=== PATIENT | male | born 1960 | race Caucasian/White ===

== ENCOUNTER 2018-02-11 01:46 | Emergency (ER) | payer OTHER, SELFPAY ==
[2018-02-11 01:47] VITALS: BP 147/85; PULSE 57; RESP 18; TEMP 36.5; O2SAT 97
[2018-02-11 01:51] VITALS: BP 147/85; PULSE 55; RESP 18; TEMP 36.5; O2SAT 95; BMI 30.1
--- NOTE | 2018-02-11 02:50 | RAD_ITS ---
STUDY: X-RAY - RIGHT TIBIA AND FIBULA REASON FOR EXAM: Male, 57 years old. Right lower leg pain status post blunt injury. TECHNIQUE: 2 view(s) of the tibia and fibula were obtained. COMPARISON: None. FINDINGS: Normal visualized tibia. Normal visualized fibula. Joints are in normal alignment without significant degenerative change. The soft tissue structures are unremarkable. RAD/Tibia & Fibula 2 Views IMPRESSION: Normal x-ray examination of the tibia and fibula. Electronically Signed: Twan Gandara MD at 3:04 EDT Tel , Service support ,
[2018-02-11] MEDS: Ibuprofen 600 MG Tablet PO (03:06)
--- NOTE | 2018-02-11 03:06 | ED.VISSUMM ---
- ER Visit Summary Date of Service: 02/11/18 Chief Complaint: [] Injury to right tibia History of Present Illness: The patient is a 57 M accidentally injured his right tibia he ran into some tubing at 715 tonight at work. He is having some aching pain in his right sharp Physical Examination: [] Vital signs reviewed General: Well-nourished well-developed Head: Normocephalic atraumatic Eyes: Pupils equal round and reactive to light extraocular movements intact ENT: TMs clear no hemotympanum no trauma Neck: Nontender full range of motion Cardiovascular: Regular rate rhythm no murmurs normal S1-S2 Respiratory: No distress clear to auscultation bilaterally chest nontender Abdomen: Soft nontender nondistended normal bowel sounds no masses Back: Nontender no CVA tenderness Extremities: Tenderness right anterior sharp pinpoint. No swelling deformity or contusion Skin: Normal color no trauma Neuro alert oriented cranial nerves II through XII intact normal strength sensation reflexes Test Results: [] Emergency Department Course and Treatment: [] X-ray negative. Given Gagan wrap ibuprofen and ice. We will continue these. At this time I think he just bruised his sharp Treatment Plan: [] Disposition: [] Impression: [] Right sharp contusion This note was generated with [employer] dictation software. It may contain incorrect words, spelling, and punctuation that were not noted in review of the chart prior to signing ED Disposition - Plan for ED Patient: Chief Complaint: Lower Extremity Injury Referrals: Fred Rea MD [Primary Care Provider] -
--- NOTE | 2018-02-11 03:08 | DCINST.ED_ITS ---
ED Disposition - Plan for ED Patient: Disposition: Home or Assisted Living Chief Complaint: Lower Extremity Injury Instructions: ED Contusion Lower Ext Referrals: Fred Rea MD [Primary Care Provider] - [facility] [facility] [GROUP OF PHYSICIANS] -
[2018-02-11 03:21] VITALS: RESP 18
== END 2018-02-11 03:22 | disposition home or self-care (01) ==
PROVIDERS: Emergency Provider Emergency Medicine; Family Provider Family Medicine; PCP Family Medicine
DX: S80.11XA Contusion of right lower leg, initial encounter (principal); W22.09XA Striking against other stationary object, initial encounter; Y93.02 Activity, running; Y92.9 Unspecified place or not applicable; Y99.0 Civilian activity done for income or pay
CPT/HCPCS: 73590; 99282

== ENCOUNTER 2020-02-08 19:12 | Observation (INO) | payer BC, SELFPAY ==
[2019-12-21 14:38] VITALS: BMI 30.2
[2020-02-08] VITALS (8 sets, daily range): BP systolic 124–163; BP diastolic 76–96; PULSE 57–83; RESP 15–21; TEMP 36.3–36.8; O2SAT 96–97; BMI 30.7; BMI 29.7; BMI 29.8
--- NOTE | 2020-02-08 19:24 | EKG12_ITS ---
Test Reason : AM EKG Blood Pressure : / mmHG Vent. Rate : 059 BPM Atrial Rate : 059 BPM P-R Int : 156 ms QRS Dur : 078 ms QT Int : 406 ms P-R-T Axes : 072 -24 035 degrees QTc Int : 401 ms Sinus bradycardia Inferior infarct , age undetermined Abnormal ECG When compared with ECG of 08-FEB-2020 21:50, MANUAL COMPARISON REQUIRED, DATA IS UNCONFIRMED Confirmed by JOSÉ ORTA, ANA ([id number]), video tape editor SANDIP RIVERA ([id number]) on 02/12/2020 2:11:19 PM Referred By: MICHELLE Confirmed By:LESLIE KUMAR MD
--- NOTE | 2020-02-08 19:29 | ED.RN ---
no old ekgs in [facility]
--- NOTE | 2020-02-08 19:40 | ED.VISSUMM ---
- ER Visit Summary Date of Service: 02/08/20 Chief Complaint: Chest pain History of Present Illness: The patient is a 59 M presenting with chest pain. He states this started after taking a walk. He had substernal and bilateral chest pain which was 9 out of 10 at its worst. He states the pain radiated to his right arm. He had associated shortness of breath, diaphoresis. He denies nausea, vomiting, lightheadedness. Currently pain he is chest pain-free. He has a history of hypertension and previous smoking. Physical Examination: Vitals are stable. Patient is afebrile. Alert no acute distress. HEENT exam is unremarkable. Neck is supple. Lungs are clear and equal bilaterally. Heart is regular rate and rhythm. Abdomen is soft nontender nondistended. Extremities are unremarkable. Skin is warm and dry. No focal neurologic deficit. Remainder of exam is unremarkable. Emergency Department Course and Treatment: Patient was given aspirin on arrival. EKG is sinus rhythm rate of 83, prolonged QTC. Chest xray shows no acute cardiopulmonary process identified. CBC, chemistries unremarkable other than BUN 23, glucose 214. Troponin is negative. On reevaluation, patient is chest pain-free. Discussed with hospitalist for observation. Disposition: Observation Impression: Chest pain This note was generated with [employer] dictation software. It may contain incorrect words, spelling, and punctuation that were not noted in review of the chart prior to signing ED Disposition - Plan for ED Patient: Referrals: Fred Rea MD [Primary Care Provider] -
[2020-02-08 19:41] LABS: Absolute Lymphocyte Count 1.63 X10^3/uL (0.83-4.51); Basophil# 0.03 X10^3/uL; Basophil% 0.6 % (0-1); Eosinophil# 0.09 X10^3/uL; Eosinophils% 1.7 % (0-5); Hematocrit 43.7 % (40-54); Hemoglobin 14.7 g/dL (13.0-16.5); Lymphocyte # 1.63 X10^3/ul (4.0); Lymphocyte % 30.8 % (19-41); Mean Corp Hgb Conc 33.6 g/dL (32-36); Mean Corpuscular Hgb 29.8 pg (27.0-32.0); Mean Corpuscular Volume 88.5 fL (80-94); Mean Platelet Vol. 10.7 fl (6.2-12.0); Monocyte# 0.48 X10^3/uL; Monocyte% 9.1 % (0-10); NRBC Flagged by Analyzer 0 % (0-5); Neutrophil # 3.03 X10^3/uL (2.7-7.7); Platelet Count 227 K/mm3 (150-450); RBC Distribution Width CV 12.5 % (11.6-14.6); RBC Distribution Width SD 40.4 fl (35.1-43.9); Red Blood Count 4.94 M/mm3 (4.6-6.2); White Blood Count 5.3 K/mm3 (4.4-11.0)
[2020-02-08 19:58] LABS: Anion Gap 4 (5-15); BUN 23 mg/dL (7-18); BUN/Creat Ratio 19.8 RATIO (10-20); Calcium,Total 8.6 mg/dL (8.5-10.1); Chloride 109 mmol/L (98-107); Creatinine, Serum 1.16 mg/dL (0.70-1.30); EST Glomerular Filtration Rate 68 mL/min (>60); Est Glom Filt Rate - Afr Amer 82 mL/min (>60); Estimated Creatinine Clearance 69.05 ml/min; Glucose 214 mg/dL (74-106); Potassium 3.7 mmol/L (3.5-5.1); Sodium Level 141 mmol/L (136-145)
--- NOTE | 2020-02-08 20:02 | RAD_ITS ---
STUDY: X-RAY CHEST REASON FOR EXAM: Male, 59 years old. PT C/O CHEST PAIN, SOB, AND DIAPHORESIS AFTER TAKING A WALK [employer]. TECHNIQUE: Single frontal view of the chest. COMPARISON: None. FINDINGS: Cardiac silhouette unremarkable. Pulmonary vascularity unremarkable. Aorta unremarkable. No focal airspace opacities. No pleural effusions. Upper abdomen unremarkable. Osseous structures intact. No pneumothorax. RAD/Chest 1 View (Portable) IMPRESSION: No acute cardiopulmonary process identified. Electronically Signed: Camilo Tovar, at 20:16 EDT Tel , Service support ,
[2020-02-08] MEDS: Aspirin 81 MG TAB.CHEW 324 MG PO (20:06)
--- NOTE | 2020-02-08 20:55 | HP.PCM_ITS ---
History of Present Illness Date of Admission: 02/08/20 Chief Complaint: chest pain The patient is a 59 year old M with a past history of high blood pressure. He was admitted through the ED on 02/08/2020 with a complaint of chest pain. Chest pain had been going on for a few weeks and he states is the third time he had had a chest pain in a couple of weeks. Pain was sharp, retrosternal, with no aggravating or relieving factors and associated with increased sweating. He denies any lightheadedness or dizziness but does have some palpitations with it. He is never had any heart problems and denies ever having a stress test. He denied any fever, chills, shortness of breath, abdominal pain, diarrhea vomit ing. Review of systems otherwise negative. On admission in the ED, temperature was 97.5 Fahrenheit with blood pressure of 158/85, pulse rate of 66 and respiratory rate of 21. He was saturating at 96% on room air. Chemistry was essentially unremarkable the glucose was 214. Initial troponin was < 0.015. CBC was unremarkable. Chest x-ray showed no acute cardiopulmonary process. He has been admitted to be managed for chest pain rule out ACS. [] Past Medical History Medical History: Medical History (Last Reviewed 12/26/19 @ 15:30 by Amena Resendiz) Alcohol abuse F10.10 Anxiety F41.9 Arthritis M19.90 Bilateral headaches R51 Carpal tunnel syndrome G56.00 GERD (gastroesophageal reflux disease) K21.9 GI disease K92.9 LEFT WRIST REPAIR RIGHT WRIST REPAIR Hypertension I10 Allergies No Known Allergies Allergy (Verified 02/22/18 11:58) Home Medications: Ambulatory Orders Medication Instructions Recorded Amlodipine Besylate [Norvasc] 2.5 mg PO DAILY 03/08/17 Tamsulosin HCl [Flomax] 0.4 mg PO DAILY 03/08/17 Cetirizine HCl 10 mg PO DAILY 02/08/20 Diphenhydramine HCl [Sleep Aid] 25 mg PO QHS 02/08/20 Surgical History: Surgical History (Last Reviewed 12/26/19 @ 15:30 by Amena Resendiz) H/O hernia repair Z98.890, Z87.19 Status post fusion of wrist Z98.1 Surgical History: no surgical history Psychiatric History: No pertinent psych hx Lives: Spouse/ Significant Other Smoking Status: Former smoker Alcohol: None Drugs: None - *Family History Maternal Family History: Family History (Last Reviewed 12/26/19 @ 15:30 by Amena Resendiz) Other Cancer Colon cancer Hypertension Review of Systems Constitutional: Denies: Chills, Fever, Malaise, Weakness, Weight Change Eyes: Denies: Blurred vision HEENT: Denies: Head Aches, Sinus Congestion, Sinus Drainage Cardiovascular: Reports: Chest Pain, Palpitations. Denies: Chest Pressure, Chest Tightness, Edema, Heaviness, Light Headedness, Orthopnea, Paroxysmal Noc. Dyspnea, Syncope Respiratory: Denies: Cough, Shortness of Breath, Shortness of breath at rest, Shortness of breath upon exertion, Sputum production Gastrointestinal: Denies: Abdominal Pain, Nausea, Vomiting Genitourinary: Denies: Dysuria Musculoskeletal: Denies: Joint Pain, Joint Tenderness Skin: Denies: Rash, Wounds Neurological: Denies: Numbness, Tingling, Focal weakness Psychiatric: Denies: Anxiety, Depression, Homicidal Ideations, Suicidal Ideations Hematologic/ Lymphatic: Denies: Easy Bruising, Easy Bleeding VTE Information - Inpt Only VTE Present on Admission: No VTE Pharm Prophylaxis ordered?: Yes - Physical Exam Vitals/I&O's: Vital Signs Temp Pulse Resp BP Pulse Ox 97.5 F L 66 21 H 158/85 H 96 02/08/20 19:15 02/08/20 20:13 02/08/20 20:13 02/08/20 20:13 02/08/20 20:13 Oxygen Delivery Method Room Air Weight: 214 lb 8.156 oz Body Mass Index (BMI) 30.7 General: Alert, Oriented x3, Cooperative, No apparent distress HEENT: Atraumatic, PERRLA, EOMI, Normocephalic Oral: Moist Mucosa Neck: Supple, No JVD, Negative Carotid Bruits Lungs: Clear to auscultation, Normal air movement, No rhonchi, No wheeze, No rales Cardiovascular: Regular rate, Regular Rhythm, Normal S1, Normal S2, No murmurs Abdomen: Bowel Sounds Present, Soft, Non Tender, Non-Distended, No Hepato- splenomegaly Extremities: No clubbing, No cyanosis, No edema, Capillary Refill Less than 3 Seconds Skin: No rashes, No breakdown Musculoskeletal: No Tenderness to Palpation of Joints or Extremities Lymphatic: No Cervical, Supraclavicular, or Inguinal Adenopathy Neurological: Cranial nerves II-XII grossly intact, Neuro grossly intact, Motor Exam 5/5 strength throughout Psych/Mental Status: Normal Affect, Appropriate, Alert and oriented to time, place, person, mood and affect Laboratory Results 02/08/20 19:20: WBC 5.3, RBC 4.94, Hgb 14.7, Hct 43.7, MCV 88.5, MCH 29.8, MCHC 33.6, RDW Std Deviation 40.4, RDW Coeff of Lara 12.5, Plt Count 227, MPV 10.7, Immature Gran % (Auto) 0.800, Neut % (Auto) 57.0, Lymph % (Auto) 30.8, [place] % (Auto) 9.1, Eos % (Auto) 1.7, Baso % (Auto) 0.6, Absolute Neuts (auto) 3.0, Absolute Lymphs (auto) 1.63, Nucleated RBC % 0 02/08/20 19:20: Sodium 141, Potassium 3.7, Chloride 109 H, Carbon Dioxide 28.0, Anion Gap 4 L, BUN 23 H, Creatinine 1.16, Estim Creat Clear Calc 69.05, Est GFR (MDRD) Af Amer 82, Est GFR (MDRD) Non-Af 68, BUN/Creatinine Ratio 19.8, Glucose 214 H, Calcium 8.6, Troponin I < 0.015 Diagnostic Data Chest X-Ray 02/08/20 20:02 IMPRESSION: No acute cardiopulmonary process identified. Electronically Signed: Camilo Tovar, at 20:16 EDT Tel , Service support , Assessment/Plan All Active Problems (Last Reviewed 12/26/19 @ 15:30 by Amena Resendiz) Back pain (Acute) Segmental and somatic dysfunction of thoracic region (Acute) Segmental and somatic dysfunction of lumbar region (Acute) Segmental and somatic dysfunction of cervical region (Acute) Contusion of right lower leg, initial encounter (Acute) 59-year-old female admitted with complaint of chest pain. 1. Chest pain rule out ACS. * admit to PCU with telemetry. Initial troponin is negative. * Chest x-ray showed no acute cardiopulmonary process. * Cycle troponins x2. * Sublingual nitroglycerin PRN. P.o. aspirin 81 mg daily. * For stress test tomorrow if troponins are negative. * 2. Hypertension: On amlodipine. 3. BPH: On Flomax. DVT prophylaxis: Lovenox CODE STATUS: Full code * Patient counseled extensively about different types of CODE STATUS including full code, DNR CCA and DNR CCA. Patient elects to be full code. Total ksus-yr-xzle time () minutes. OBSV E&M: 63020 Initial observation care L2 Procedures: 89090 Advncd Care Plan 30 Min
--- NOTE | 2020-02-08 21:43 | EKG12_ITS ---
Test Reason : CP ADMISSION Blood Pressure : / mmHG Vent. Rate : 063 BPM Atrial Rate : 063 BPM P-R Int : 154 ms QRS Dur : 072 ms QT Int : 408 ms P-R-T Axes : 051 -09 -01 degrees QTc Int : 417 ms Sinus rhythm with Premature atrial complexes Inferior infarct , age undetermined Abnormal ECG When compared with ECG of 08-FEB-2020 19:21, MANUAL COMPARISON REQUIRED, DATA IS UNCONFIRMED Confirmed by JOSÉ ORTA, ANA ([id number]), telegraph editor SANDIP RIVERA ([id number]) on 02/12/2020 2:15:29 PM Referred By: MICHELLE Confirmed By:LESLIE KUMAR MD
[2020-02-08 22:30] LABS: Hemoglobin A1c 5.6 % (3.8-5.6)
[2020-02-08] MEDS: DiphenhydrAMINE 25 MG Capsule PO (23:09)
[2020-02-09 03:00] VITALS: PULSE 64
[2020-02-09 03:47] VITALS: BP 125/68; PULSE 60; RESP 16; TEMP 36.7; O2SAT 97
[2020-02-09 05:46] VITALS: BP 132/81; PULSE 61; RESP 16; TEMP 36.3; O2SAT 93
[2020-02-09] MEDS: Aspirin E.C. 81 MG Tablet PO (05:49)
--- NOTE | 2020-02-09 05:55 | EKG12_ITS ---
Test Reason : CP Blood Pressure : / mmHG Vent. Rate : 083 BPM Atrial Rate : 083 BPM P-R Int : 152 ms QRS Dur : 078 ms QT Int : 534 ms P-R-T Axes : 054 -10 064 degrees QTc Int : 627 ms Normal sinus rhythm Prolonged QT Abnormal ECG Confirmed by LACI ORTA, ARAM ([id number]), video editor NOLAN LENNON ([id number]) on 02/13/2020 8:56:48 AM Referred By: PRASHANTH Confirmed By:ARAM AGUERO MD
[2020-02-09 06:35] LABS: Absolute Lymphocyte Count 1.25 X10^3/uL (0.83-4.51); Absolute Neutrophil Count 2.4 X10^3/uL (2.0-7.7); Basophil# 0.03 X10^3/uL; Basophil% 0.7 % (0-1); Eosinophil# 0.07 X10^3/uL; Eosinophils% 1.6 % (0-5); Hematocrit 43.7 % (40-54); Hemoglobin 14.9 g/dL (13.0-16.5); Lymphocyte # 1.25 X10^3/ul (4.0); Lymphocyte % 29.2 % (19-41); Mean Corp Hgb Conc 34.1 g/dL (32-36); Mean Corpuscular Hgb 30.3 pg (27.0-32.0); Mean Corpuscular Volume 88.8 fL (80-94); Mean Platelet Vol. 10.5 fl (6.2-12.0); Monocyte# 0.46 X10^3/uL; Monocyte% 10.7 % (0-10); NRBC Flagged by Analyzer 0 % (0-5); Neutrophil # 2.43 X10^3/uL (2.7-7.7); Neutrophil % 56.9 % (47-70); Platelet Count 211 K/mm3 (150-450); RBC Distribution Width CV 12.5 % (11.6-14.6); RBC Distribution Width SD 40.3 fl (35.1-43.9); Red Blood Count 4.92 M/mm3 (4.6-6.2); White Blood Count 4.3 K/mm3 (4.4-11.0)
[2020-02-09 06:59] VITALS: PULSE 62
[2020-02-09 07:06] LABS: Anion Gap 1 (5-15); BUN 20 mg/dL (7-18); BUN/Creat Ratio 20.2 RATIO (10-20); Calcium,Total 8.5 mg/dL (8.5-10.1); Chloride 111 mmol/L (98-107); Creatinine, Serum 0.99 mg/dL (0.70-1.30); EST Glomerular Filtration Rate 81 mL/min (>60); Est Glom Filt Rate - Afr Amer 98 mL/min (>60); Estimated Creatinine Clearance 80.91 ml/min; Glucose 119 mg/dL (74-106); Potassium 4.2 mmol/L (3.5-5.1); Sodium Level 142 mmol/L (136-145)
[2020-02-09 10:01] VITALS: BP 121/80; PULSE 66; RESP 16; TEMP 36.7; O2SAT 99
[2020-02-09] MEDS: amLODIPine 2.5 MG Tablet PO (10:19)
[2020-02-09] MEDS: Enoxaparin 40 MG/0.4 ML Syringe SC (10:19)
[2020-02-09] MEDS: Loratadine 10 MG Tablet PO (10:19)
[2020-02-09 12:09] VITALS: PULSE 55
--- NOTE | 2020-02-09 12:27 | STRESSREP_ITS ---
Stress Test Report Date: 02/09/2020 Procedure: Exercise tolerance test/imaging study Indications: Chest discomfort Consent: Per the patient Procedure: The patient exercised on a Yang protocol for 8 minutes and 30 seconds achieving a peak heart rate of 141 bpm (88 % predicted maximal heart rate) with a peak blood pressure 162/82 mmHg and a peak MET capacity of 10.1 METs. The baseline ECG demonstrated normal sinus rhythm. The peak exercise ECG demonstrated sinus tachycardia with no significant ischemic changes patient did have one 3 beat run of nonsustained V. tach during exercise. He had occasional PVCs as well during exercise and in the recovery period. EKG during recovery revealed [no significant ischemic changes] [There were no significant cardiac dysrhythmias pretest, during exercise, or recovery]. The functional capacity was considered normal for age. There was [no complaint of chest discomfort during exercise or recovery]. The examination was discontinued secondary to shortness of breath. Impression: 1. Technically adequate (percent predicted maximal heart rate greater than 85%) exercise tolerance test 2. Stress test is negative for exercise-induced EKG changes of ischemia 3. The test test is negative for exercise-induced chest pain 4. Functional capacity is normal for age 5. Nuclear images pending Myocardial perfusion imaging study: Technique: The patient was injected with 14.4 mCi of technetium 99m Cardiolite and subsequently rest SPECT Cardiolite nuclear imaging was obtained in the horiz ontal long, vertical long, and short axis views. The patient exercised on a Yang protocol. Please see above for details. The patient was injected with 45 mCi of technetium 99m Cardiolite and subsequently stress SPECT Cardiolite nuclear imaging was obtained in the horizontal long, vertical long, and short axis views. A gated Cardiolite study at peak stress was obtained. Interpretation: Rest and stress SPECT Cardiolite nuclear imaging status post realignment, normalization, and attenuation correction, demonstrates overall normal myocardial radioisotope uptake. The gated Cardiolite study demonstrates no significant regional wall motion abnormalities. The reported LVEF is 67 %. Impression: 1. There is no evidence of significant ischemia or infarction. 2. The gated Cardiolite study reports an LVEF of 67 %. This note was generated with [employer] software. It may contain incorrect words, spelling, and punctuation that were not noted in checking the note before signing.
--- NOTE | 2020-02-09 12:52 | DCINST_ITS ---
You will use the following diet at home:: Cardiac Your food should be the consistency of: Regular Your liquids should be the consistency of: Regular/Thin Discharge Activity: Return to Normal Activity Call your doctor if you observe: Fever of 101 or Higher, Shortness of breath, Dizziness, Fainting spells, Swelling in the ankles, Chest pain, Increased palpitations (irregular heartbeat) Allergies/Adverse Reactions: Allergies No Known Allergies Allergy (Verified 02/22/18 11:58) Medications to take at Discharge Amlodipine Besylate [Norvasc] 2.5 mg PO DAILY 03/08/17 Tamsulosin HCl [Flomax] 0.4 mg PO DAILY 03/08/17 Cetirizine HCl 10 mg PO DAILY 02/08/20 Diphenhydramine HCl [Sleep Aid] 50 mg PO QHS 02/08/20 Primary Care Physician: Fred Rea MD [Primary Care Provider] - Please follow up with your Primary Care Physician in: 3-5 days Test Results: Test results from this visit will be discussed in further detail at your follow- up appointment, if applicable.
--- NOTE | 2020-02-09 13:36 | PHA.DC.MR ---
Pharmacy Service has performed discharge medication reconciliation for this patient. The patient's discharge medication list was reviewed for discrepancies and discrepancies were resolved. Home Medications Amlodipine Besylate [Norvasc] 2.5 mg PO DAILY 03/08/17 Tamsulosin HCl [Flomax] 0.4 mg PO DAILY 03/08/17 Cetirizine HCl 10 mg PO DAILY 02/08/20 Diphenhydramine HCl [Sleep Aid] 50 mg PO QHS 02/08/20
--- NOTE | 2020-02-09 14:19 | PCM.DC.SUM ---
Discharge Date and Diagnosis Date of Admission: 02/08/20 Date of Discharge: 02/09/20 Hospital Course and Treatment Imaging Results: 02/09/20 05:55 Nuclear Stress Test - Treadmil [NM] AM (NON MEDS) Stress Test Report Date: 02/09/2020 Procedure: Exercise tolerance test/imaging study Indications: Chest discomfort Consent: Per the patient Procedure: The patient exercised on a Yang protocol for 8 minutes and 30 seconds achieving a peak heart rate of 141 bpm (88 % predicted maximal heart rate) with a peak blood pressure 162/82 mmHg and a peak MET capacity of 10.1 METs. The baseline ECG demonstrated normal sinus rhythm. The peak exercise ECG demonstrated sinus tachycardia with no significant ischemic changes patient did have one 3 beat run of nonsustained V. tach during exercise. He had occasional PVCs as well during exercise and in the recovery period. EKG during recovery revealed [no significant ischemic changes] [There were no significant cardiac dysrhythmias pretest, during exercise, or recovery]. The functional capacity was considered normal for age. There was [no complaint of chest discomfort during exercise or recovery]. The examination was discontinued secondary to shortness of breath. Impression: 1. Technically adequate (percent predicted maximal heart rate greater than 85%) exercise tolerance test 2. Stress test is negative for exercise-induced EKG changes of ischemia 3. The test test is negative for exercise-induced chest pain 4. Functional capacity is normal for age 5. Nuclear images pending Myocardial perfusion imaging study: Technique: The patient was injected with 14.4 mCi of technetium 99m Cardiolite and subsequently rest SPECT Cardiolite nuclear imaging was obtained in the horizontal long, vertical long, and short axis views. The patient exercised on a Yang protocol. Please see above for details. The patient was injected with 45 mCi of technetium 99m Cardiolite and subsequently stress SPECT Cardiolite nuclear imaging was obtained in the horizontal long, vertical long, and short axis views. A gated Cardiolite study at peak stress was obtained. Interpretation: Rest and stress SPECT Cardiolite nuclear imaging status post realignment, normalization, and attenuation correction, demonstrates overall normal myocardial radioisotope uptake. The gated Cardiolite study demonstrates no significant regional wall motion abnormalities. The reported LVEF is 67 %. Impression: 1. There is no evidence of significant ischemia or infarction. 2. The gated Cardiolite study reports an LVEF of 67 %. Consults: None Operations: None Procedures: Nuclear stress test Summary of Care Provided: Per HPI: The patient is a 59 year old M with a past history of high blood pressure. He was admitted through the ED on 02/08/2020 with a complaint of chest pain. Chest pain had been going on for a few weeks and he states is the third time he had had a chest pain in a couple of weeks. Pain was sharp, retrosternal, with no aggravating or relieving factors and associated with increased sweating. He denies any lightheadedness or dizziness but does have some palpitations with it. He is never had any heart problems and denies ever having a stress test. He denied any fever, chills, shortness of breath, abdominal pain, diarrhea vomiting. Review of systems otherwise negative. On admission in the ED, temperature was 97.5 Fahrenheit with blood pressure of 158/85, pulse rate of 66 and respiratory rate of 21. He was saturating at 96% on room air. Chemistry was essentially unremarkable the glucose was 214. Initial troponin was < 0.015. CBC was unremarkable. Chest x-ray showed no acute cardiopulmonary process. He has been admitted to be managed for chest pain rule out ACS. Hospital Course: 1. Chest pain/[id number]-old male presents to the hospital with chest pain prior to admission. 3 negative troponins and an unremarkable EKG but he underwent a nuclear stress test on the day of discharge which was also normal. On the day of discharge he says that he had no more chest pain that he was feeling very would like to go home. I discussed the risks and benefits of going home and he expressed understanding. He states that he has been having a lot of anxiety at home lately and is likely contributing to sensation of chest pain. - Physical Exam Vitals/I&O's: Vital Signs Temp Pulse Resp BP Pulse Ox 98.1 F 55 L 16 121/80 H 99 02/09/20 10:02/09/20 12:09 02/09/20 10:01 02/09/20 10:02/09/20 10:01 Oxygen Flow Rate (L/min) 2 Oxygen Delivery Method Room Air Weight: 207 lb 10.807 oz Body Mass Index (BMI) 29.7 Intake and Output for Last 24 Hours 02/07/20 02/08/20 02/09/20 23:59 23:59 23:59 Intake Total 240 / 240 300 / 300 Output Total 300 / 300 Balance -60 / -60 300 / 300 General: Alert, Oriented x3, Cooperative, No apparent distress HEENT: Atraumatic, PERRLA, EOMI, Normocephalic Oral: Moist Mucosa Neck: Supple, No JVD Lungs: Clear to auscultation, Normal air movement, No rhonchi, No wheeze, No rales, Diminished Cardiovascular: Regular rate, Regular Rhythm, Normal S1, Normal S2, No murmurs Abdomen: Soft, Non Tender, Non-Distended, No Hepato-splenomegaly Extremities: No edema, Capillary Refill Less than 3 Seconds Skin: No rashes, No breakdown Neurological: Neuro grossly intact, Sensory exam intact to light touch and pain Psych/Mental Status: Normal Affect, Appropriate Laboratory Results 02/08/20 19:20: WBC 5.3, RBC 4.94, Hgb 14.7, Hct 43.7, MCV 88.5, MCH 29.8, MCHC 33.6, RDW Std Deviation 40.4, RDW Coeff of Lara 12.5, Plt Count 227, MPV 10.7, Immature Gran % (Auto) 0.800, Neut % (Auto) 57.0, Lymph % (Auto) 30.8, [place] % (Auto) 9.1, Eos % (Auto) 1.7, Baso % (Auto) 0.6, Absolute Neuts (auto) 3.0, Absolute Lymphs (auto) 1.63, Nucleated RBC % 0 02/08/20 19:20: Sodium 141, Potassium 3.7, Chloride 109 H, Carbon Dioxide 28.0, Anion Gap 4 L, BUN 23 H, Creatinine 1.16, Estim Creat Clear Calc 69.05, Est GFR (MDRD) Af Amer 82, Est GFR (MDRD) Non-Af 68, BUN/Creatinine Ratio 19.8, Glucose 214 H, Calcium 8.6, Troponin I < 0.015 02/08/20 19:20: Hemoglobin A1c 5.6 02/08/20 22:07: Troponin I < 0.015 02/09/20 01:10: Troponin I < 0.015 02/09/20 06:20: WBC 4.3 L, RBC 4.92, Hgb 14.9, Hct 43.7, MCV 88.8, MCH 30.3, MCHC 34.1, RDW Std Deviation 40.3, RDW Coeff of Lara 12.5, Plt Count 211, MPV 10.5, Immature Gran % (Auto) 0.900, Neut % (Auto) 56.9, Lymph % (Auto) 29.2, [place] % (Auto) 10.7 H, Eos % (Auto) 1.6, Baso % (Auto) 0.7, Absolute Neuts (auto) 2.4, Absolute Lymphs (auto) 1.25, Nucleated RBC % 0 02/09/20 06:20: Sodium 142, Potassium 4.2, Chloride 111 H, Carbon Dioxide 30.0, Anion Gap 1 L, BUN 20 H, Creatinine 0.99, Estim Creat Clear Calc 80.91, Est GFR (MDRD) Af Amer 98, Est GFR (MDRD) Non-Af 81, BUN/Creatinine Ratio 20.2 H, Glucose 119 H, Calcium 8.5 Discharge Activity: Return to Normal Activity Call your doctor if you observe: Fever of 101 or Higher, Shortness of breath, Dizziness, Fainting spells, Swelling in the ankles, Chest pain, Increased palpitations (irregular heartbeat) Home Medications: Medications to take at Discharge Amlodipine Besylate [Norvasc] 2.5 mg PO DAILY 03/08/17 Tamsulosin HCl [Flomax] 0.4 mg PO DAILY 03/08/17 Cetirizine HCl 10 mg PO DAILY 02/08/20 Diphenhydramine HCl [Sleep Aid] 50 mg PO QHS 02/08/20 Primary Care Physician: Fred Rea MD [Primary Care Provider] - Please follow up with your Primary Care Physician in: 3-5 days Disposition: Home Minutes spent on discharge:: 35 Patient Condition:: Stable Medical Necessity - Tobacco Use Smoking Status: Former smoker Tobacco Use: Cigarettes Meaningful Use Info Meaningful Use Diagnoses (Choose all that apply): None applicable OBSV E&M: 85042 Observation care discharge
== END 2020-02-09 12:53 | disposition home or self-care (01) ==
LOC: ED 19:48 → PCU 21:21
PROVIDERS: Admitting Provider Student in an Organized Health Care Education/Training Program; Emergency Provider Emergency Medicine; PCP Family Medicine; Visit Provider Family Medicine
DX: R07.89 Other chest pain (principal); I10 Essential (primary) hypertension; R06.02 Shortness of breath; M79.601 Pain in right arm; M19.90 Unspecified osteoarthritis, unspecified site; K21.9 Gastro-esophageal reflux disease without esophagitis; F10.10 Alcohol abuse, uncomplicated; F41.9 Anxiety disorder, unspecified; M99.01 Segmental and somatic dysfunction of cervical region; M99.03 Segmental and somatic dysfunction of lumbar region; M99.02 Segmental and somatic dysfunction of thoracic region; N40.0 Benign prostatic hyperplasia without lower urinary tract symptoms; Z87.891 Personal history of nicotine dependence; Z79.899 Other long term (current) drug therapy; I49.1 Atrial premature depolarization
CPT/HCPCS: 36415; 71045; 78452; 80048; 83036; 84484; 85025; 93005; 93017; 96372; 99218; 99285; A9500; A4216; G0378

== ENCOUNTER 2020-05-18 16:07 | Observation (INO) | payer BC, SELFPAY ==
[2020-02-08 21:47] VITALS: BMI 29.7
[2020-05-18 16:08] VITALS: BP 157/109; PULSE 85; RESP 18; TEMP 36.4; O2SAT 97; BMI 30.1
--- NOTE | 2020-05-18 16:18 | CT_ITS ---
STUDY: CT ABDOMEN AND PELVIS WITHOUT CONTRAST REASON FOR EXAM: Male, 59 years old. Trauma fall, back pain rib pain RADIATION DOSAGE (If Supplied By Facility): CTDIvol = ( 16.95 ) mGy, DLP = ( 1221.92 ) mGycm TECHNIQUE: Transaxial images were obtained from the dome of the diaphragm to the symphysis pubis without oral contrast, and without intravenous contrast. Sagittal and coronal images were reconstructed. Individualized dose optimization techniques were used for this CT. COMPARISON: None. FINDINGS: The visualized lung bases are unremarkable. There is probably fundoplication. There is an elongated falciform ligament fossa 2.5 cm segment IVb hepatic lesion without overlying free fluid. Remainder of the liver is normal.. Normal gallbladder and extrahepatic biliary system. Normal spleen. Normal pancreas. Normal bilateral adrenal glands. Normal right kidney. Normal left kidney. There is diffuse sigmoid diverticulosis without diverticulitis. Normal abdominal aorta. Normal inferior vena cava. Normal retroperitoneum. Normal urinary bladder. Normal abdominal wall. There are bilateral inguinal fat hernias. There is bilateral L5 chronic lysis without listhesis. Remainder of the spine is intact and aligned with age-related change. Pelvis is intact. CT/Abdomen/Pelvis W IV Cont ONLY IMPRESSION: 1. 2.5 cm hepatic subcapsular lesion, differential is small laceration versus focal fatty infiltration. 2. No intra-abdominal free fluid or other organ injury. Electronically Signed: Diallo Amador, at 17:52 EST Tel , Service support ,
--- NOTE | 2020-05-18 16:19 | ED.VISSUMM ---
- ER Visit Summary Date of Service: 05/18/20 Chief Complaint: Fall [] History of Present Illness: The patient is a 59 M presents to the emergency department after sustaining a fall about an hour ago while at home. Patient states that he went to sit on the couch at home and he missed the couch completely and fell directly onto his bottom on a concrete floor. Patient complaining of pain in his chest. He complains of pain with breathing and movement. Pain is severe. He denied significant back pain. Denies any pain rating down his legs. Denies weakness in extremities. Patient's brought him in today. [] Physical Examination: [HEENT-PERRLA, EOMI. Cranial nerves II through XII grossly intact. TMs clear. Mucous membranes moist. No adenopathy. Cardiovascular-regular rate and rhythm without murmur or ectopy Lungs-clear to auscultation, chest wall stable without crepitus or subcu emphysema. Patient does have some mild discomfort over the right and left anterior chest. Abdomen-normoactive bowel sounds, soft. Patient does have some tenderness over the right upper quadrant and left upper quadrant. No rebound, rigidity, or frail signs. Back exam-patient has tenderness to palpation over the upper lumbar spine. Extremities-intact ?4, normal range of motion, normal pulses, atraumatic] Test Results: [CBC with differential was unremarkable. Chemistries unremarkable. LFTs unremarkable. Lipase was normal 74. CT scan of the abdomen pelvis with IV contrast obtained showed a small 2.5 cm subcapsular lesion which could represent a small laceration versus fatty infiltration.] Emergency Department Course and Treatment: [IV line established on arrival. Patient given morphine and Zofran for pain. Case was discussed with general surgeon on-call as well as with hospitalist. It was felt the patient could remain here for observation and the surgeon could see patient tomorrow. Plan will be to cycle H&H and observe the patient.] Treatment Plan: Admit [] Disposition: [Admit] Impression: [Chemical fall Concern for small liver laceration] This note was generated with [employer] dictation software. It may contain incorrect words, spelling, and punctuation that were not noted in review of the chart prior to signing ED Disposition - Plan for ED Patient: Referrals: Fred Rea MD [Primary Care Provider] -
[2020-05-18 16:35] VITALS: O2SAT 97
[2020-05-18 16:41] LABS: Absolute Lymphocyte Count 1.16 X10^3/uL (0.83-4.51); Absolute Neutrophil Count 4.5 X10^3/uL (2.0-7.7); Basophil# 0.04 X10^3/uL; Basophil% 0.6 % (0-1); Eosinophil# 0.04 X10^3/uL; Eosinophils% 0.6 % (0-5); Hematocrit 46.3 % (40-54); Hemoglobin 15.6 g/dL (13.0-16.5); Lymphocyte # 1.16 X10^3/ul (4.0); Lymphocyte % 18.5 % (19-41); Mean Corp Hgb Conc 33.7 g/dL (32-36); Mean Corpuscular Hgb 29.4 pg (27.0-32.0); Mean Corpuscular Volume 87.2 fL (80-94); Mean Platelet Vol. 10.6 fl (6.2-12.0); Monocyte# 0.55 X10^3/uL; Monocyte% 8.8 % (0-10); NRBC Flagged by Analyzer 0 % (0-5); Neutrophil # 4.48 X10^3/uL (2.7-7.7); Neutrophil % 71.3 % (47-70); Platelet Count 224 K/mm3 (150-450); RBC Distribution Width CV 12.7 % (11.6-14.6); RBC Distribution Width SD 40.3 fl (35.1-43.9); Red Blood Count 5.31 M/mm3 (4.6-6.2); White Blood Count 6.3 K/mm3 (4.4-11.0)
[2020-05-18 16:59] LABS: ALB/GLOB Ratio 1.1 RATIO (0.9-2.4); AST(SGOT) 12 U/L (15-37); Alanine Aminotransfer ALT/SGPT 26 U/L (16-61); Albumin, Serum 3.8 g/dL (3.2-5.0); Alkaline Phosphatase 75 U/L (45-117); Anion Gap 6 (5-15); BUN 20 mg/dL (7-18); BUN/Creat Ratio 18.3 RATIO (10-20); Calcium,Total 9.2 mg/dL (8.5-10.1); Chloride 110 mmol/L (98-107); Creatinine, Serum 1.09 mg/dL (0.70-1.30); EST Glomerular Filtration Rate 73 mL/min (>60); Est Glom Filt Rate - Afr Amer 88 mL/min (>60); Estimated Creatinine Clearance 73.48 ml/min; Globulin 3.6 g/dL (2.2-4.2); Glucose 110 mg/dL (74-106); Lipase 74 U/L (73-393); Potassium 3.8 mmol/L (3.5-5.1); Protein, Total 7.4 g/dL (6.4-8.2); Sodium Level 143 mmol/L (136-145)
--- NOTE | 2020-05-18 17:15 | RAD_ITS ---
STUDY: X-RAY CHEST REASON FOR EXAM: Male, 59 years old. fell trying to sit on couch today and landed on concrete. pt c/o bilateral anterior rib pain and lower back pain. TECHNIQUE: Frontal view of the chest COMPARISON: February 08 2020 FINDINGS: The lungs are clear and expanded. There is no demonstrated pleural abnormality. Normal size heart. Normal mediastinum and otilia. Normal visualized pulmonary arteries. Normal visualized aortic arch and descending thoracic aorta. Normal visualized thoracic spine. Normal visualized ribs, clavicles, and shoulders. There is no demonstrated abnormality of the visualized soft tissue structures of the upper abdomen. RAD/Chest 1 View (Portable) IMPRESSION: Normal x-ray examination of the chest. Electronically Signed: Diallo Amador, at 17:47 EST Tel , Service support ,
[2020-05-18] MEDS: Morphine 4 MG/ML Syringe IV (17:29)
[2020-05-18] MEDS: Ondansetron 4 MG/2 ML Vial IV (17:29)
[2020-05-18] MEDS: 0.9% Normal Saline 1,000 ML 150 ML IV (17:31)
--- NOTE | 2020-05-18 18:14 | NURSING ---
MED SURG OBS SUPA BOSWELL, CONCERN FOR SMALL LIVER LAC
--- NOTE | 2020-05-18 18:30 | PCM.HP.STD ---
Problem List (1) Liver lesion Status: Acute (2) BPH (benign prostatic hyperplasia) Status: Chronic (3) HTN (hypertension) Status: Chronic (4) Neck pain Status: Chronic (5) Back pain Status: Chronic Qualifiers: (6) Segmental and somatic dysfunction of thoracic region Status: Inactive (7) Segmental and somatic dysfunction of lumbar region Status: Inactive (8) Segmental and somatic dysfunction of cervical region Status: Inactive (9) Contusion of right lower leg, initial encounter Status: Inactive (10) Fall Status: Acute History of Present Illness Date of Admission: 05/18/20 Mr. Be is a 59 year old WM who presented to the ED on 05/18/2020 after sustaining a fall about an hour prior to presentation. He came in because he had some pain in his lower chest/upper abdominal area B. He states that he went to sit on a couch and completely missed and sat hard on a concrete floor. He stated that the pain was severe. VS are unremarkable. His lab work was unremarkable with a hgb of 15.6. A CT was done of his abdomen and pelvis and showed a 2.5 cm subcapsular lesion that was read as a possible sm laceration vs a focal fatty infiltration. The ED physician discussed the case with Dr. Latham and he stated that he would see the pt tomorrow after a repeat CT in the am. Past Medical History Past Medical History (Chronic Problems): Chronic Problems (Last Reviewed 04/16/20 @ 15:22 by Elizabeth Henderson) BPH (benign prostatic hyperplasia) (Chronic) HTN (hypertension) (Chronic) Neck pain (Chronic) Back pain (Chronic) Medical History: Medical History (Last Reviewed 05/18/20 @ 18:[address] Ashanti Israel, DO) Alcohol abuse F10.10 Anxiety F41.9 Arthritis M19.90 Bilateral headaches R51 Carpal tunnel syndrome G56.00 GERD (gastroesophageal reflux disease) K21.9 GI disease K92.9 LEFT WRIST REPAIR RIGHT WRIST REPAIR Hypertension I10 Allergies No Known Allergies Allergy (Verified 02/22/18 11:58) Home Medications: Ambulatory Orders Medication Instructions Recorded Amlodipine Besylate [Norvasc] 2.5 mg PO DAILY 03/08/17 Tamsulosin HCl [Flomax] 0.4 mg PO DAILY 03/08/17 Diphenhydramine HCl [Sleep Aid] 50 mg PO QHS 02/08/20 Surgical History: Surgical History (Last Reviewed 05/18/20 @ 18:[address] Ashanti Israel, DO) H/O hernia repair Z98.890, Z87.19 Status post fusion of wrist Z98.1 Surgical History: no surgical history Psychiatric History: No pertinent psych hx Lives: With Family Smoking Status: Former smoker Tobacco Use: Non-smoker Alcohol: None Drugs: None Review of Systems Constitutional: Denies: Anorexia, Chills, Fever, Night Sweats, Malaise, Weakness, Weight Change, Fatigue Cardiovascular: Reports: Chest Pain - inferior chest/upper abdomen. Denies: Claudication, Chest Pressure, Chest Tightness, Edema, Heaviness, Light Headedness, Orthopnea, Palpitations, Paroxysmal Noc. Dyspnea, Syncope Respiratory: Denies: Cough, Hemoptysis, Pleuritic Pain, Shortness of Breath, Shortness of breath at rest, Shortness of breath upon exertion, Sputum production, Wheezing Gastrointestinal: Reports: Abdominal Pain. Denies: Constipation, Diarrhea, Dyspepsia, Hematemesis, Hematochezia, Nausea, Melena, Vomiting Genitourinary: Reports: Retention. Denies: Dysuria, Frequency, Hematuria, Hesitancy, Incontinence, Nocturia, Urgency Musculoskeletal: Denies: Back Pain, Joint Pain, Joint stiffness, Joint swelling, Muscle pain, Neck Pain, Shoulder Pain Skin: Denies: Dryness, Jaundice, Lesions, Pruritis, Rash, Skin Changes, Wounds Neurological: Denies: Change in Speech, Slurred speech, Confusion, Difficulty swallowing, Focal weakness, Headaches, Incoordination, Numbness, Tingling, Tremor, Seizures Psychiatric: Denies: Anxiety, Depression Endocrine: Denies: Change in Body Habitus, Heat/ Cold Intolerance, Polydipsia Hematologic/ Lymphatic: Denies: Adenopathy, Anemia VTE Information - Inpt Only VTE Present on Admission: No VTE Mechan Device Prophylaxis: None VTE Pharm Prophylaxis ordered?: No - Physical Exam Vitals/I&O's: Vital Signs Temp Pulse Resp BP Pulse Ox 97.5 F L 85 18 157/109 H 97 05/18/20 16:08 05/18/20 16:08 05/18/20 16:08 05/18/20 16:08 05/18/20 16:35 Oxygen Delivery Method Room Air Weight: 95.254 kg Body Mass Index (BMI) 30.1 General: Alert, Oriented x3, Cooperative, Well developed, Well nourished, - - Well appearing WM sitting up in bed on phone HEENT: Atraumatic, PERRLA, EOMI, Normocephalic Oral: Moist Mucosa, No Gingival or Mucosal Lesions/ Ulcerations, - - fair dentition Lungs: Clear to auscultation, No rhonchi, No wheeze, No rales, Diminished - diffusely Cardiovascular: Regular rate, Regular Rhythm, Normal S1, Normal S2, No murmurs, No Ectopic Activity, No rub noted Abdomen: Bowel Sounds Present, Soft, Non-Distended, Obese, Tender - nipple line upper abdominal tenderness B Extremities: No clubbing, No cyanosis, No edema, Capillary Refill Less than 3 Seconds, Peripheral Pulses Normal Skin: No rashes, No breakdown Musculoskeletal: No Tenderness to Palpation of Joints or Extremities, No Muscle Wasting Neurological: Cranial nerves II-XII grossly intact, Neuro grossly intact Psych/Mental Status: Normal Affect, Appropriate Laboratory Results 05/18/20 16:30: WBC 6.3, RBC 5.31, Hgb 15.6, Hct 46.3, MCV 87.2, MCH 29.4, MCHC 33.7, RDW Std Deviation 40.3, RDW Coeff of Lara 12.7, Plt Count 224, MPV 10.6, Immature Gran % (Auto) 0.200, Neut % (Auto) 71.3 H, Lymph % (Auto) 18.5 L, [place] % (Auto) 8.8, Eos % (Auto) 0.6, Baso % (Auto) 0.6, Absolute Neuts (auto) 4.5, Absolute Lymphs (auto) 1.16, Nucleated RBC % 0 05/18/20 16:30: Sodium 143, Potassium 3.8, Chloride 110 H, Carbon Dioxide 27.0, Anion Gap 6, BUN 20 H, Creatinine 1.09, Estim Creat Clear Calc 73.48, Est GFR (MDRD) Af Amer 88, Est GFR (MDRD) Non-Af 73, BUN/Creatinine Ratio 18.3, Glucose 110 H, Calcium 9.2, Total Bilirubin 0.30, AST 12 L, ALT 26, Alkaline Phosphatase 75, Total Protein 7.4, Albumin 3.8, Globulin 3.6, Albumin/Globulin Ratio 1.1, Lipase 74 Current Medications Sodium Chloride () 1,000 mls @ 150 mls/hr IV .[id number] [facility] Last Admin: 05/18/20 17:31 Dose: 150 mls/hr Documented by: Assessment/Plan All Active Problems (Last Reviewed 04/16/20 @ 15:22 by Elizabeth Henderson) Liver lesion (Acute) Fall (Acute) Fall -pt misjudged distance and location of couch when sitting -sore but no fractures or orthopedic complaints -prn pain meds 2.5 cm Liver Lesion -concern for sm laceration -cycle hgb -repeat CT in am -consult Dr. Latham--> d/w him by the ED -if stable d/c home tomorrow HTN -continue Home meds BPH -continue Flomax DVT Prophylaxis early ambulation Code status Full Inpatient E&M: 11197 Init Hosp L2
[2020-05-18 18:40] VITALS: BP 148/90; PULSE 82; RESP 18; TEMP 36.6; O2SAT 98
[2020-05-18 18:53] VITALS: BMI 30.1
[2020-05-18 19:06] VITALS: BP 147/95; PULSE 56; RESP 18; TEMP 36.6; O2SAT 98
[2020-05-18 19:07] LABS: Bacteria 0 SEEN /hpf (None Seen); Mucous, Urine 0 SEEN /hpf (<or=2+); Red Blood Cells-Urine 0 SEEN /hpf (0-5); White Blood Cells 0 SEEN /hpf (0-5)
[2020-05-18 19:10] LABS: Color, Urine Yellow (Yellow); Glucose, Dipstick Normal (Normal); Ketone-Dipstick Negative (Negative); Leukocyte Esterase-Dipstick Negative /ul (Negative); Nitrite-Dipstick Negative (Negative); Occult Blood-Urine Negative /ul (Negative); Protein-Dipstick Negative (Negative); Urine Bilirubin Dipstick Negative (Negative); Urine Clarity Clear (Clear); Urine Urobilinogen Normal (Normal)
[2020-05-18 19:14] VITALS: BMI 30.1
[2020-05-18 19:51] LABS: Hemoglobin 14.2 g/dL (13.0-16.5)
[2020-05-18] MEDS: oxyCODONE 5 MG Tablet PO (19:55)
[2020-05-18 20:13] LABS: Squamous Epithelial Cells - UA 0-5 SEEN /hpf (0-5)
[2020-05-18] MEDS: DiphenhydrAMINE 25 MG Capsule 50 MG PO (21:36)
[2020-05-19 01:01] LABS: Hemoglobin 13.5 g/dL (13.0-16.5)
[2020-05-19 02:18] VITALS: BP 132/86; PULSE 47; RESP 18; TEMP 36.5; O2SAT 99
[2020-05-19] MEDS: oxyCODONE 5 MG Tablet PO (05:51)
[2020-05-19] MEDS: 0.9% Saline Lock 10 ML Syringe IV (05:51)
--- NOTE | 2020-05-19 05:55 | CT_ITS ---
STUDY: CT ABDOMEN AND PELVIS WITHOUT CONTRAST REASON FOR EXAM: Male, 59 years old. F/U FOR ? LIVER LACERATION POST FALL YESTERDAY,PT HAS RUQ PAIN -- HX:HTN,GERD,BPH,HERNIA REPAIR RADIATION DOSAGE (If Supplied By Facility): CTDIvol = ( 9.41 ) mGy, DLP = ( 514.61 ) mGycm TECHNIQUE: Transaxial images were obtained from the dome of the diaphragm to the symphysis pubis without oral contrast, and without intravenous contrast. Sagittal and coronal images were reconstructed. Individualized dose optimization techniques were used for this CT. COMPARISON: None. FINDINGS: The visualized lung bases are unremarkable. The visualized portions of the heart are within normal limits. Normal liver. Normal gallbladder and extrahepatic biliary system. Normal spleen. Normal pancreas. Normal bilateral adrenal glands. Normal right kidney. Normal left kidney. There appears to have been gastric surgery. There is NO obstruction or mass. Normal small intestine. There are multiple colonic diverticula consistent with diverticulosis. There is NO acute diverticulitis or colitis. The appendix is visualized and appears normal. Normal abdominal aorta. Normal inferior vena cava. Normal retroperitoneum. Normal urinary bladder. There is NO ascites or free air, abscess or adenopathy. Normal abdominal wall. Normal osseous structures. CT/Abdomen/Pelvis without Cont IMPRESSION: There are NO kidney stones or ureteral stones. There is NO hydronephrosis. There is NO acute bowel process. There is NO ascites or free air, abscess or adenopathy. Electronically Signed: Rahul Choi MD at 6:08 EST , Service support ,
[2020-05-19 06:04] LABS: Hemoglobin 14.6 g/dL (13.0-16.5)
[2020-05-19 06:09] LABS: Absolute Lymphocyte Count 1.28 X10^3/uL (0.83-4.51); Absolute Neutrophil Count 2.9 X10^3/uL (2.0-7.7); Basophil# 0.04 X10^3/uL; Basophil% 0.8 % (0-1); Eosinophils% 2.1 % (0-5); Hematocrit 43.4 % (40-54); Hemoglobin 14.7 g/dL (13.0-16.5); Lymphocyte # 1.28 X10^3/ul (4.0); Lymphocyte % 26.7 % (19-41); Mean Corp Hgb Conc 33.9 g/dL (32-36); Mean Corpuscular Hgb 30.1 pg (27.0-32.0); Mean Corpuscular Volume 88.8 fL (80-94); Mean Platelet Vol. 10.3 fl (6.2-12.0); Monocyte# 0.42 X10^3/uL; Monocyte% 8.8 % (0-10); NRBC Flagged by Analyzer 0 % (0-5); Neutrophil # 2.93 X10^3/uL (2.7-7.7); Neutrophil % 61.2 % (47-70); Platelet Count 190 K/mm3 (150-450); RBC Distribution Width SD 42.1 fl (35.1-43.9); Red Blood Count 4.89 M/mm3 (4.6-6.2); White Blood Count 4.8 K/mm3 (4.4-11.0)
[2020-05-19 07:50] VITALS: BP 138/79; PULSE 54; RESP 18; TEMP 36.6; O2SAT 97
--- NOTE | 2020-05-19 08:34 | DCINST_ITS ---
- Discharge Diagnoses Current Active Problems: Current Active and Chronic Problems (Last Reviewed 05/18/20 @ 18:[address] Ashanti Israel, DO) Liver lesion (Acute) BPH (benign prostatic hyperplasia) (Chronic) HTN (hypertension) (Chronic) Fall (Acute) Neck pain (Chronic) Back pain (Chronic) You will use the following diet at home:: No restrictions Your food should be the consistency of: Regular Your liquids should be the consistency of: Regular/Thin Discharge Activity: Return to Normal Activity Weight Bearing Status: Full weight bearing Allergies/Adverse Reactions: Allergies No Known Allergies Allergy (Verified 02/22/18 11:58) Medications to take at Discharge Amlodipine Besylate [Norvasc] 2.5 mg PO DAILY 03/08/17 Tamsulosin HCl [Flomax] 0.4 mg PO DAILY 03/08/17 Diphenhydramine HCl [Sleep Aid] 50 mg PO QHS 02/08/20 Primary Care Physician: Fred Rea MD [Primary Care Provider] - Please follow up with your Primary Care Physician in: in 2 weeks Test Results: Test results from this visit will be discussed in further detail at your follow- up appointment, if applicable.
--- NOTE | 2020-05-19 09:27 | CON.PCM_ITS ---
Problem List (1) Liver lesion Status: Acute Reason for Consult Date of Consultation: 05/19/20 History of Present Illness: Mr. Be is a 59 year old WM who presented to the ED on 05/18/2020 after sustaining a fall about an hour prior to presentation. He came in because he had some pain in his lower chest/upper abdominal area B. He states that he went to sit on a couch and completely missed and sat hard on a concrete floor. He stated that the pain was severe. VS are unremarkable. His lab work was unremarkable with a hgb of 15.6. A CT was done of his abdomen and pelvis and showed a 2.5 cm subcapsular lesion that was read as a possible sm laceration vs a focal fatty infiltration. Repeat CAT scan this morning does not show this liver lesion whatsoever. Patient is not complaining of any abdominal pain at this time he has no nausea or no vomiting. Past Medical History Past Medical History (Chronic Problems): Chronic Problems (Last Reviewed 05/19/20 @ 09:[address] Juan Antonio Latham MD) BPH (benign prostatic hyperplasia) (Chronic) HTN (hypertension) (Chronic) Neck pain (Chronic) Back pain (Chronic) Medical History: Medical History (Last Reviewed 05/19/20 @ 09:[address] Juan Antonio Latham MD) Alcohol abuse F10.10 Anxiety F41.9 Arthritis M19.90 Bilateral headaches R51 Carpal tunnel syndrome G56.00 GERD (gastroesophageal reflux disease) K21.9 GI disease K92.9 LEFT WRIST REPAIR RIGHT WRIST REPAIR Hypertension I10 Allergies No Known Allergies Allergy (Verified 02/22/18 11:58) Home Medications: Ambulatory Orders Medication Instructions Recorded Amlodipine Besylate [Norvasc] 2.5 mg PO DAILY 03/08/17 Tamsulosin HCl [Flomax] 0.4 mg PO DAILY 03/08/17 Diphenhydramine HCl [Sleep Aid] 50 mg PO QHS 02/08/20 Surgical History: Surgical History (Last Reviewed 05/19/20 @ 09:[address] Juan Antonio Latham MD) H/O hernia repair Z98.890, Z87.19 Status post fusion of wrist Z98.1 Surgical History: no surgical history Psychiatric History: No pertinent psych hx Lives: With Family Smoking Status: Former smoker Tobacco Use: Non-smoker Alcohol: None Drugs: None Review of Systems Constitutional: Denies: Chills, Fever, Weight Change Cardiovascular: Denies: Chest Pain, Chest Pressure, Chest Tightness, Palpitations Respiratory: Denies: Cough, Hemoptysis, Shortness of breath at rest, Shortness of breath upon exertion, Wheezing Gastrointestinal: Denies: Abdominal Pain, Constipation, Diarrhea, Hematemesis, Nausea, Melena, Vomiting Patient Problems: Active and Suspected Problems (Last Reviewed 05/19/20 @ 09:[address] Juan Antonio Latham MD) Liver lesion (Acute) Fall (Acute) - Physical Exam Vitals/I&O's: Vital Signs Temp Pulse Resp BP Pulse Ox 97.9 F 54 L 18 138/79 H 97 05/19/20 07:50 05/19/20 07:50 05/19/20 07:50 05/19/20 07:50 05/19/20 07:50 Oxygen Delivery Method Room Air Weight: 210 lb Body Mass Index (BMI) 30.1 Intake and Output for Last 24 Hours 05/17/20 05/18/20 05/19/20 23:59 23:59 23:59 Intake Total 222.5 / 222.5 700 / 700 Balance 222.5 / 222.5 700 / 700 General: Alert, Oriented x3 Lungs: Clear to auscultation Cardiovascular: Regular rate, Regular Rhythm, No murmurs Abdomen: Bowel Sounds Present, Soft, Non Tender, Non-Distended Laboratory Results 05/18/20 16:30: WBC 6.3, RBC 5.31, Hgb 15.6, Hct 46.3, MCV 87.2, MCH 29.4, MCHC 33.7, RDW Std Deviation 40.3, RDW Coeff of Lara 12.7, Plt Count 224, MPV 10.6, Immature Gran % (Auto) 0.200, Neut % (Auto) 71.3 H, Lymph % (Auto) 18.5 L, [place] % (Auto) 8.8, Eos % (Auto) 0.6, Baso % (Auto) 0.6, Absolute Neuts (auto) 4.5, Absolute Lymphs (auto) 1.16, Nucleated RBC % 0 05/18/20 16:30: Sodium 143, Potassium 3.8, Chloride 110 H, Carbon Dioxide 27.0, Anion Gap 6, BUN 20 H, Creatinine 1.09, Estim Creat Clear Calc 73.48, Est GFR (MDRD) Af Amer 88, Est GFR (MDRD) Non-Af 73, BUN/Creatinine Ratio 18.3, Glucose 110 H, Calcium 9.2, Total Bilirubin 0.30, AST 12 L, ALT 26, Alkaline Phosphatase 75, Total Protein 7.4, Albumin 3.8, Globulin 3.6, Albumin/Globulin Ratio 1.1, Lipase 74 05/18/20 18:55: Urine Color Yellow, Urine Clarity Clear, Urine pH 7.0, Ur Specific [place] 1.010, Urine Protein Negative, Urine Glucose (UA) Normal, Urine Ketones Negative, Urine Occult Blood Negative, Urine Nitrite Negative, Urine Bilirubin Negative, Urine Urobilinogen Normal, Ur Leukocyte Esterase Negative, Urine RBC 0 SEEN, Urine WBC 0 SEEN, Ur Squamous Epith Cells 0-5 SEEN, Urine Bacteria 0 SEEN, Urine Mucus 0 SEEN 05/18/20 19:21: Hgb 14.2 05/19/20 00:52: Hgb 13.5 05/19/20 05:57: WBC 4.8, RBC 4.89, Hgb 14.7, Hct 43.4, MCV 88.8, MCH 30.1, MCHC 33.9, RDW Std Deviation 42.1, RDW Coeff of Lara 13.0, Plt Count 190, MPV 10.3, Immature Gran % (Auto) 0.400, Neut % (Auto) 61.2, Lymph % (Auto) 26.7, [place] % (Auto) 8.8, Eos % (Auto) 2.1, Baso % (Auto) 0.8, Absolute Neuts (auto) 2.9, Absolute Lymphs (auto) 1.28, Nucleated RBC % 0 05/19/20 05:57: Hgb 14.6 Current Medications Acetaminophen (Acetaminophen 325 Mg Tablet) 650 mg PO Q6H PRN PRN PRN Reason: Pain Score 1-10/Temp > 100.7 F Amlodipine Besylate (Amlodipine 2.5 Mg Tablet) 2.5 mg PO DAILY [facility] Diphenhydramine HCl (Diphenhydramine 25 Mg Capsule) 50 mg PO QHS [facility] Last Admin: 05/18/20 21:36 Dose: 50 mg Documented by: Ondansetron HCl (Ondansetron 4 Mg/2 Ml Vial) 4 mg IV Q8H PRN PRN PRN Reason: NAUSEA/VOMITING Oxycodone HCl (Oxycodone 5 Mg Tablet) 5 mg PO Q4H PRN PRN PRN Reason: Pain Score 4-10 Last Admin: 05/19/20 05:51 Dose: 5 mg Documented by: Sodium Chloride (0.9% Saline Lock 10 Ml Syringe) 10 - 40 ml IV UD PRN PRN Reason: SALINE FLUSH Last Admin: 05/19/20 05:51 Dose: 10 ml Documented by: Tamsulosin HCl (Tamsulosin Hcl 0.4 Mg Capsule) 0.4 mg PO DAILY [facility] Assessment/Plan All Active Problems (Last Reviewed 05/19/20 @ 09:[address] Juan Antonio Latham MD) Liver lesion (Acute) Fall (Acute) Not really sure the patient actually had a liver laceration since his repeat CAT scan did not show any abnormalities. He can follow back up with his primary care doctor. No surgical intervention is needed at this time. No repeat CAT scan is needed at this time. Office Visits / Consults: [id number] OP Consult L2
--- NOTE | 2020-05-19 09:33 | DS.PCM_ITS ---
Discharge Date and Diagnosis - Problem List Patient Problems: Active and Suspected Problems (Last Reviewed 05/19/20 @ 09:[address] Juan Antonio Latham MD) Liver lesion (Acute) Fall (Acute) Date of Admission: 05/18/20 Date of Discharge: 05/19/20 - Primary Discharge Diagnosis Acute Problems: Active Problems (Last Reviewed 05/19/20 @ 09:[address] Juan Antonio Latham MD) #1 mechanical fall #2 essential hypertension Abnormal liver lesion was ruled out - Secondary Discharge Diagnosis Chronic Problems: Chronic Problems (Last Reviewed 05/19/20 @ 09:[address] Juan Antonio Latham MD) BPH (benign prostatic hyperplasia) (Chronic) HTN (hypertension) (Chronic) Neck pain (Chronic) Back pain (Chronic) Hospital Course and Treatment Imaging Results: 05/19/20 05:55 CT Abd [Abdomen/Pelvis without Cont] [CT] AM (NON MEDS) Operations: None Procedures: None Summary of Care Provided: The patient is a 59 year old M seen in the emergency room at [facility] after sustaining a fall at home when he went to sit down in the chair and missed the chair. Patient complained of rib pain. Work-up in the emergency room included a CT of the abdomen and pelvis which showed an area on the liver 2.5 cm that was described as a possible laceration to the liver. Patient's labs were unremarkable except for a BUN of 20. Patient was placed into observation status on MedSurg 3, repeat labs were obtained on 05/19/2020 which appeared normal. Repeat CT of the abdomen pelvis was performed which showed no abnormality whatsoever, I checked with the imaging service for the hospital and I talked personally with a radiologist who felt that the first scan was not abn ormal. On 05/19/2020, patient was seen and examined: On examination he appeared in good health and spirits. Vital signs as documented. Skin warm and dry and without overt rashes. Neck without JVD, neck was supple, trachea midline, thyroid was normal. Lungs clear bilaterally, normal air movement was noted. Heart exam notable for regular rhythm, normal sounds and absence of murmurs, rubs or gallops. Abdomen unremarkable and without evidence of organomegaly, masses, or abdominal aortic enlargement. Bowel sounds are present, abdomen is not distended. Extremities nonedematous, no cyanosis was noted, no clubbing was noted. Neuro: Cranial nerves II through XII are grossly intact, no focal motor deficits were noted, sensation to light touch and pinprick intact, motor exam 5/5 throughout. Psych: Patient is alert and oriented x3, he does not appear anxious or depressed, he does not appear agitated. On 05/19/2020, patient was seen and examined and felt to be stable for discharge home Patient Problems: Active and Suspected Problems (Last Reviewed 05/19/20 @ 09:[address] Juan Antonio Latham MD) Liver lesion (Acute) Fall (Acute) - Physical Exam Vitals/I&O's: Vital Signs Temp Pulse Resp BP Pulse Ox 97.9 F 54 L 18 138/79 H 97 05/19/20 07:50 05/19/20 07:50 05/19/20 07:50 05/19/20 07:50 05/19/20 07:50 Oxygen Delivery Method Room Air Weight: 95.254 kg Body Mass Index (BMI) 30.1 Intake and Output for Last 24 Hours 05/17/20 05/18/20 05/19/20 23:59 23:59 23:59 Intake Total 222.5 / 222.5 700 / 700 Balance 222.5 / 222.5 700 / 700 Laboratory Results 05/18/20 16:30: WBC 6.3, RBC 5.31, Hgb 15.6, Hct 46.3, MCV 87.2, MCH 29.4, MCHC 33.7, RDW Std Deviation 40.3, RDW Coeff of Lara 12.7, Plt Count 224, MPV 10.6, Immature Gran % (Auto) 0.200, Neut % (Auto) 71.3 H, Lymph % (Auto) 18.5 L, [place] % (Auto) 8.8, Eos % (Auto) 0.6, Baso % (Auto) 0.6, Absolute Neuts (auto) 4.5, Absolute Lymphs (auto) 1.16, Nucleated RBC % 0 05/18/20 16:30: Sodium 143, Potassium 3.8, Chloride 110 H, Carbon Dioxide 27.0, Anion Gap 6, BUN 20 H, Creatinine 1.09, Estim Creat Clear Calc 73.48, Est GFR (MDRD) Af Amer 88, Est GFR (MDRD) Non-Af 73, BUN/Creatinine Ratio 18.3, Glucose 110 H, Calcium 9.2, Total Bilirubin 0.30, AST 12 L, ALT 26, Alkaline Phosphatase 75, Total Protein 7.4, Albumin 3.8, Globulin 3.6, Albumin/Globulin Ratio 1.1, Lipase 74 05/18/20 18:55: Urine Color Yellow, Urine Clarity Clear, Urine pH 7.0, Ur Specific [place] 1.010, Urine Protein Negative, Urine Glucose (UA) Normal, Urine Ketones Negative, Urine Occult Blood Negative, Urine Nitrite Negative, Urine Bilirubin Negative, Urine Urobilinogen Normal, Ur Leukocyte Esterase Negative, Urine RBC 0 SEEN, Urine WBC 0 SEEN, Ur Squamous Epith Cells 0-5 SEEN, Urine Bacteria 0 SEEN, Urine Mucus 0 SEEN 05/18/20 19:21: Hgb 14.2 05/19/20 00:52: Hgb 13.5 05/19/20 05:57: WBC 4.8, RBC 4.89, Hgb 14.7, Hct 43.4, MCV 88.8, MCH 30.1, MCHC 33.9, RDW Std Deviation 42.1, RDW Coeff of Lara 13.0, Plt Count 190, MPV 10.3, Immature Gran % (Auto) 0.400, Neut % (Auto) 61.2, Lymph % (Auto) 26.7, [place] % (Auto) 8.8, Eos % (Auto) 2.1, Baso % (Auto) 0.8, Absolute Neuts (auto) 2.9, Absolute Lymphs (auto) 1.28, Nucleated RBC % 0 05/19/20 05:57: Hgb 14.6 Current Medications Acetaminophen (Acetaminophen 325 Mg Tablet) 650 mg PO Q6H PRN PRN PRN Reason: Pain Score 1-10/Temp > 100.7 F Amlodipine Besylate (Amlodipine 2.5 Mg Tablet) 2.5 mg PO DAILY [facility] Diphenhydramine HCl (Diphenhydramine 25 Mg Capsule) 50 mg PO QHS [facility] Last Admin: 05/18/20 21:36 Dose: 50 mg Documented by: Ondansetron HCl (Ondansetron 4 Mg/2 Ml Vial) 4 mg IV Q8H PRN PRN PRN Reason: NAUSEA/VOMITING Oxycodone HCl (Oxycodone 5 Mg Tablet) 5 mg PO Q4H PRN PRN PRN Reason: Pain Score 4-10 Last Admin: 05/19/20 05:51 Dose: 5 mg Documented by: Sodium Chloride (0.9% Saline Lock 10 Ml Syringe) 10 - 40 ml IV UD PRN PRN Reason: SALINE FLUSH Last Admin: 05/19/20 05:51 Dose: 10 ml Documented by: Tamsulosin HCl (Tamsulosin Hcl 0.4 Mg Capsule) 0.4 mg PO DAILY [facility] Discharge Activity: Return to Normal Activity Weight Bearing Status: Full weight bearing Home Medications: Medications to take at Discharge Amlodipine Besylate [Norvasc] 2.5 mg PO DAILY 03/08/17 Tamsulosin HCl [Flomax] 0.4 mg PO DAILY 03/08/17 Diphenhydramine HCl [Sleep Aid] 50 mg PO QHS 02/08/20 Primary Care Physician: Fred Rea MD [Primary Care Provider] - Please follow up with your Primary Care Physician in: in 2 weeks Disposition: Home Minutes spent on discharge:: 30 Patient Condition:: Stable Medical Necessity - Tobacco Use Smoking Status: Former smoker Tobacco Use: Non-smoker Meaningful Use Info Meaningful Use Diagnoses (Choose all that apply): None applicable OBSV E&M: 08858 Observation care discharge
[2020-05-19] MEDS: amLODIPine 2.5 MG Tablet PO (09:55)
[2020-05-19] MEDS: Tamsulosin HCl 0.4 MG Capsule PO (09:55)
== END 2020-05-19 10:03 | disposition home or self-care (01) ==
LOC: ED 16:50 → MS3 18:34
PROVIDERS: Admitting Provider Internal Medicine; Emergency Provider Emergency Medicine; PCP Family Medicine; Visit Provider Internal Medicine
DX: R06.00 Dyspnea, unspecified (principal); S80.11XA Contusion of right lower leg, initial encounter; W19.XXXA Unspecified fall, initial encounter; Y93.89 Activity, other specified; Y92.009 Unspecified place in unspecified non-institutional (private) residence as the place of occurrence of the external cause; N40.0 Benign prostatic hyperplasia without lower urinary tract symptoms; I10 Essential (primary) hypertension; M54.2 Cervicalgia; M99.01 Segmental and somatic dysfunction of cervical region; M99.03 Segmental and somatic dysfunction of lumbar region; M99.02 Segmental and somatic dysfunction of thoracic region; M19.90 Unspecified osteoarthritis, unspecified site; K21.9 Gastro-esophageal reflux disease without esophagitis; F10.10 Alcohol abuse, uncomplicated; Z79.899 Other long term (current) drug therapy; Z87.891 Personal history of nicotine dependence
CPT/HCPCS: 36415; 71045; 74176; 74177; 80053; 81001; 83690; 85018; 85025; 96374; 96375; 99218; 99282; J7030; Q9967; A4216; G0378; J2405

== ENCOUNTER 2020-08-31 19:41 | Emergency (ER) | payer BC, SELFPAY ==
[2020-08-31 19:41] VITALS: BP 105/70; PULSE 64; RESP 20; TEMP 36.4; O2SAT 96; BMI 30.3
--- NOTE | 2020-08-31 19:53 | EKG12_ITS ---
Test Reason : SYNCOPE Blood Pressure : / mmHG Vent. Rate : 055 BPM Atrial Rate : 055 BPM P-R Int : 172 ms QRS Dur : 084 ms QT Int : 418 ms P-R-T Axes : 052 011 056 degrees QTc Int : 399 ms Sinus bradycardia with Premature supraventricular complexes T wave abnormality, consider lateral ischemia Abnormal ECG Confirmed by LACI ORTA, ARAM ([id number]), industrial editor NOLAN LENNON ([id number]) on 09/03/2020 11:27:42 AM Referred By: JUAQUIN Confirmed By:ARAM AGUERO MD
--- NOTE | 2020-08-31 19:53 | ED.VIS.GEN ---
History of Present Illness Informant: Patient Narrative: 60-year-old male presents via EMS following a syncopal episode. Patient tells me he went to the bathroom with straining trying to have a bowel movement. He could not so he stood up when he stood up he states he got extremely weak sweaty and passed out. He states he did not hurt himself. He states he continues to feel weak and is sweaty. He notes a slight abdominal discomfort which he tells me he cannot describe. No arm or leg symptoms. He reports having had a stress test in 2019 here at this hospital that was normal. No history of aortic aneurysm or dissection. No recent surgery or trauma. No known history of clotting disorders or pulmonary embolism. No headache. Patient has had nausea vomiting and diarrhea intermittently for more than 6 months. He has been working with his doctors on this. <Juan Atnonio Li - Last Filed: 08/31/20 22:12> <Alejandrina Reyna - Last Filed: 08/31/20 23:09> Chief Complaint: Syncope - Past Medical History (1) BPH (benign prostatic hyperplasia) Status: Chronic (2) Back pain Status: Chronic (3) HTN (hypertension) Status: Chronic <Juan Antonio Li - Last Filed: 08/31/20 22:12> Past Medical History Surgical History: noncontributory Lives: Spouse/ Significant Other Smoking Status: Former smoker Drugs: None <Juan Antonio Li - Last Filed: 08/31/20 22:12> <Alejandrina Reyna - Last Filed: 08/31/20 23:09> - Allergies and Home Meds Allergies/Adverse Reactions: Allergies No Known Allergies Allergy (Verified 08/31/20 19:45) Primary Care Physician: Fred Rea MD [Primary Care Provider] - 1 Week Review of Systems General: Reports: Malaise. Denies: Chills, Fever, Sweats Eyes: Denies: Visual changes - bilaterally, Diplopia ENT: Denies: Rhinorrhea, Sore throat Cardiovascular: Reports: - - Syncope. Denies: Chest pain, Palpitations, Heart racing Respiratory: Denies: Dyspnea, Cough, Dyspnea on exertion Gastrointestinal: Reports: Abdominal pain, Nausea, Vomiting, Diarrhea, Constipation. Denies: Melena, Hematochezia Genitourinary: Denies: Dysuria, Hematuria, Frequency Musculoskeletal: Denies: Back pain, Extremity Pain Skin: Denies: Rash, Wounds Neurological: Denies: Headache, Weakness, Numbness <Juan Antonio Li - Last Filed: 08/31/20 22:12> Physical Exam Vital Signs/Narrative: Vital Signs Temp Pulse Resp BP Pulse Ox 08/31/20 19:41 97.5 F L 64 20 H 105/70 96 Inital Vital Signs reviewed: Yes General: Well nourished, Well developed, No Acute Distress Head: Normocephalic, Atraumatic Eyes: Perrl, EOMI ENT: Moist mucous membranes, No rhinorrhea Neck: Supple, Nontender Cardiovascular: Regular rate, No murmurs, Bradycardia Respiratory: No distress, CTA bilaterally, Chest nontender Abdomen: Soft, Nontender, Nondistended, Normal bowel sounds Back: Nontender, Normal Inspection Extremities: Nontender, No edema Skin: No rash, Diaphoresis, Pallor Neurological: Alert, Oriented x3, Cranial nerves II-XII grossly intact, Normal Strength, Normal Sensation Psychological: Normal affect, Normal Mood <Juan Antonio Li - Last Filed: 08/31/20 22:12> Vital Signs/Narrative: Vital Signs Temp Pulse Resp BP Pulse Ox 08/31/20 22:07 55 L 13 113/58 L 97 08/31/20 19:41 97.5 F L 64 20 H 105/70 96 <Alejandrina Reyna - Last Filed: 08/31/20 23:09> Diagnostic/Tx/Re-eval Laboratory Last Values WBC 6.6 K/mm3 (4.4-11.0) 08/31/20 19:30 RBC 5.03 M/mm3 (4.6-6.2) 08/31/20 19:30 Hgb 15.0 g/dL (13.0-16.5) 08/31/20 19:30 Hct 43.5 % (40-54) 08/31/20 19:30 MCV 86.5 fL (80-94) 08/31/20 19:30 MCH 29.8 pg (27.0-32.0) 08/31/20 19:30 MCHC 34.5 g/dL (32-36) 08/31/20 19:30 RDW Std Deviation 39.5 fl (35.1-43.9) 08/31/20 19: RDW Coeff of Lara 12.6 % (11.6-14.6) 08/31/20: Plt Count 227 K/mm3 (150-450) 08/31/20 19: MPV 10.9 fl (6.2-12.0) 08/31/20 19: Immature Gran % (Auto) 0.300 % (0.0-0.9) 08/31/20: Neut % (Auto) 58.7 % (47-70) 08/31/20: Lymph % (Auto) 30.1 % (19-41) 08/31/20: [place] % (Auto) 9.2 % (0-10) 08/31/20: Eos % (Auto) 0.9 % (0-5) 08/31/20: Baso % (Auto) 0.8 % (0-1) 08/31/20 Absolute Neuts (auto) 3.9 X10^3/uL (2.0-7.7) 08/31/20: Absolute Lymphs (auto) 1.99 X10^3/uL (0.83-4.51) 08/31/20: Nucleated RBC % 0 % (0-5) 08/31/20 19: Sodium 143 mmol/L (136-145) 08/31/20: Potassium 2.8 mmol/L (3.5-5.1) L 08/31/20: Chloride 112 mmol/L (98-107) H 08/31/20: Carbon Dioxide 25.0 mmol/L (21.0-32.0) 08/31/20: Anion Gap 6 (5-15) 08/31/20: BUN 22 mg/dL (7-18) H 08/31/20: Creatinine 1.06 mg/dL (0.70-1.30) 08/31/20: Estim Creat Clear Calc 74.61 ml/min 08/31/20: Est GFR (MDRD) Af Amer 91 mL/min (>60) 02/20/21 19:30 Est GFR (MDRD) Non-Af 75 mL/min (>60) 08/31/20 19:30 BUN/Creatinine Ratio 20.8 RATIO (10-20) H 08/31/20 19:30 Glucose 112 mg/dL (74-106) H 08/31/20 19:30 Calcium 8.7 mg/dL (8.5-10.1) 08/31/20 19:30 Magnesium 2.1 mg/dL (1.6-2.6) 08/31/20 19:30 Total Bilirubin 0.30 mg/dL (0.20-1.00) 08/31/20 19:30 AST 12 U/L (15-37) L 08/31/20 19:30 ALT 28 U/L (16-61) 08/31/20 19:30 Alkaline Phosphatase 62 U/L (45-117) 08/31/20 19:30 Troponin I < 0.015 ng/mL (<0.045) 08/31/20 19:30 Total Protein 6.4 g/dL (6.4-8.2) 08/31/20 19:30 Albumin 3.4 g/dL (3.2-5.0) 08/31/20 19:30 Globulin 3.0 g/dL (2.2-4.2) 08/31/20 19:30 Albumin/Globulin Ratio 1.1 RATIO (0.9-2.4) 08/31/20 19:30 Clinical Impression(s) from Imaging Studies Chest X-Ray 08/31/20 19:55 IMPRESSION: Normal x-ray examination of the chest. Electronically Signed: Bird Starr DO at 20:41 EST Tel [phone], Service support , - EKG Initial EKG Interpretation: Sinus Bradycardia - EKG demonstrates sinus bradycardia with premature supraventricular complex. No STEMI features noted. - Medical Decision Making Patient found to have a potassium level of 2.8 with normal magnesium level. Initial troponin is negative. He received oral and IV potassium. A delta troponin is ordered. I suspect that his hypokalemia is related to his chronic vomiting and diarrhea. If second troponin is negative I suspect the patient can be discharged home and this was a vagal process. Clinically he is doing much better. He is not pale or diaphoretic. He has had no events on the monitor. <Juan Antonio Li - Last Filed: 08/31/20 22:12> - Medical Decision Making Patient signed up to me pending repeat troponin. Repeat troponin returned at less than 0.015. Patient will be discharged with potassium replacement as per Dr. Li's plan. <Alejandrina Reyna - Last Filed: 08/31/20 23:09> ED Disposition <Juan Antonio Li - Last Filed: 08/31/20 22:12> <Alejandrina Reyna - Last Filed: 08/31/20 23:09> - Plan for ED Patient: Diagnosis: Syncope and collapse, Hypokalemia Instructions: ED Hypokalemia, ED Fainting, Vagal Reaction Prescriptions: Potassium Chloride 20 meq PO DAILY #7 [email or web address] Prescription Printed Referrals: Fred Rea MD [Primary Care Provider] - 1 Week
--- NOTE | 2020-08-31 19:55 | RAD_ITS ---
STUDY: X-RAY CHEST REASON FOR EXAM: Male, 60 years old. patient had syncope episode after trying to have a BM. pt was unable to go. pt denies hitting his head. pt pale and diaphoretic on arrival -- HX OF HTN TECHNIQUE: Frontal view COMPARISON: 05/18/2020. FINDINGS: The lungs are clear and expanded. There is no demonstrated pleural abnormality. Normal size heart. Normal mediastinum and otilia. Normal visualized pulmonary arteries. Normal visualized aortic arch and descending thoracic aorta. Degenerative changes of the thoracic spine. Normal visualized ribs, clavicles, and shoulders. There is no demonstrated abnormality of the visualized soft tissue structures of the upper abdomen. RAD/Chest 1 View (Portable) IMPRESSION: Normal x-ray examination of the chest. Electronically Signed: Bird Starr DO at 20:41 EST Tel [phone], Service support ,
[2020-08-31] MEDS: 0.9% Normal Saline 1,000 ML 999 ML IV (19:58)
[2020-08-31 20:00] LABS: Absolute Lymphocyte Count 1.99 X10^3/uL (0.83-4.51); Absolute Neutrophil Count 3.9 X10^3/uL (2.0-7.7); Basophil# 0.05 X10^3/uL; Basophil% 0.8 % (0-1); Eosinophil# 0.06 X10^3/uL; Eosinophils% 0.9 % (0-5); Hematocrit 43.5 % (40-54); Lymphocyte # 1.99 X10^3/ul (4.0); Lymphocyte % 30.1 % (19-41); Mean Corp Hgb Conc 34.5 g/dL (32-36); Mean Corpuscular Hgb 29.8 pg (27.0-32.0); Mean Corpuscular Volume 86.5 fL (80-94); Mean Platelet Vol. 10.9 fl (6.2-12.0); Monocyte# 0.61 X10^3/uL; Monocyte% 9.2 % (0-10); NRBC Flagged by Analyzer 0 % (0-5); Neutrophil # 3.88 X10^3/uL (2.7-7.7); Neutrophil % 58.7 % (47-70); Platelet Count 227 K/mm3 (150-450); RBC Distribution Width CV 12.6 % (11.6-14.6); RBC Distribution Width SD 39.5 fl (35.1-43.9); Red Blood Count 5.03 M/mm3 (4.6-6.2); White Blood Count 6.6 K/mm3 (4.4-11.0)
[2020-08-31 20:16] LABS: ALB/GLOB Ratio 1.1 RATIO (0.9-2.4); AST(SGOT) 12 U/L (15-37); Alanine Aminotransfer ALT/SGPT 28 U/L (16-61); Albumin, Serum 3.4 g/dL (3.2-5.0); Alkaline Phosphatase 62 U/L (45-117); Anion Gap 6 (5-15); BUN 22 mg/dL (7-18); BUN/Creat Ratio 20.8 RATIO (10-20); Calcium,Total 8.7 mg/dL (8.5-10.1); Chloride 112 mmol/L (98-107); Creatinine, Serum 1.06 mg/dL (0.70-1.30); EST Glomerular Filtration Rate 75 mL/min (>60); Est Glom Filt Rate - Afr Amer 91 mL/min (>60); Estimated Creatinine Clearance 74.61 ml/min; Glucose 112 mg/dL (74-106); Potassium 2.8 mmol/L (3.5-5.1); Protein, Total 6.4 g/dL (6.4-8.2); Sodium Level 143 mmol/L (136-145)
[2020-08-31] MEDS: Potassium Chloride Oral Tablet 20 MEQ 40 MEQ PO (20:25)
[2020-08-31] MEDS: Potassium Chloride 10mEq/100mL 10 MEQ/100 ML IV.SOLN. 100 MEQ IV BOLUS (20:44)
[2020-08-31 20:46] LABS: Magnesium 2.1 mg/dL (1.6-2.6)
[2020-08-31 22:07] VITALS: BP 113/58; PULSE 55; RESP 13; O2SAT 97
[2020-08-31 23:17] VITALS: BP 145/92; PULSE 60; RESP 18; O2SAT 98
== END 2020-08-31 23:18 | disposition home or self-care (01) ==
PROVIDERS: Emergency Provider Emergency Medicine; PCP Family Medicine
DX: R55 Syncope and collapse (principal); E87.6 Hypokalemia; R11.2 Nausea with vomiting, unspecified; I49.1 Atrial premature depolarization; I10 Essential (primary) hypertension; N40.0 Benign prostatic hyperplasia without lower urinary tract symptoms; M54.9 Dorsalgia, unspecified; G89.29 Other chronic pain; Z87.891 Personal history of nicotine dependence
CPT/HCPCS: 71045; 80053; 83735; 84484; 85025; 93005; 96360; 96361; 99285; A4216